=== PATIENT | male | born 1985 | race Caucasian/White ===

== ENCOUNTER 2016-06-23 08:56 | Emergency (ER) | payer OTHER ==
[2016-06-23] MEDS ORDERED: CLINDAMYCIN 150 MG CAPSULE PO STA (09:39)
[2016-06-23] MEDS ORDERED: DEXAMETHASONE 10 MG/ML VIAL PO STA (09:39)
[2016-06-23] MEDS ORDERED: ACETAMINOPHEN 325 MG TABLET PO STA (09:39)
[2016-06-23] MEDS ORDERED: CHERRY SYRUP 10 ML UDC PO ONE (09:43)
[2016-06-23] MEDS ORDERED: CLINDAMYCIN 150 MG CAPSULE PO ONE (09:43)
[2016-06-23] MEDS ORDERED: ACETAMINOPHEN 325 MG TABLET PO ONE (09:43)
[2016-06-23] MEDS ORDERED: DEXAMETHASONE 10 MG/ML VIAL ONE (09:44)
== END 2016-06-23 09:56 | disposition home or self-care (01) ==
DX: J36 Peritonsillar abscess (principal)
CPT/HCPCS: 87070; 87430; 99283; A9270

== ENCOUNTER 2016-06-24 19:42 | Emergency (ER) | payer OTHER ==
[2016-06-24] MEDS ORDERED: cefTRIAXone 500 MG VIAL IM STA (21:25)
[2016-06-24] MEDS ORDERED: ACETAMINOPHEN 325 MG TABLET PO STA (21:26)
[2016-06-24] MEDS ORDERED: DEXAMETHASONE 10 MG/ML VIAL PO STA (21:26)
[2016-06-24] MEDS ORDERED: LIDOCAINE-MPF 1% 5 ML VIAL ONE (21:30)
[2016-06-24] MEDS ORDERED: DEXAMETHASONE 10 MG/ML VIAL ONE (21:30)
[2016-06-24] MEDS ORDERED: cefTRIAXone 500 MG VIAL ONE (21:30)
[2016-06-24] MEDS ORDERED: ACETAMINOPHEN 325 MG TABLET PO ONE (21:32)
[2016-06-24] MEDS ORDERED: CHERRY SYRUP 10 ML UDC PO ONE (21:32)
== END 2016-06-24 21:51 | disposition home or self-care (01) ==
DX: J36 Peritonsillar abscess (principal)
CPT/HCPCS: 96372; 99282; 99283; A9270

== ENCOUNTER 2016-08-04 09:11 | Day surgery (SDC) | payer OTHER ==
[2016-08-04] MEDS ORDERED: ceFAZolin 2 GM/50 ML 50 ML IV ONE (09:37)
[2016-08-04] MEDS ORDERED: LACTATED RINGERS 1,000 ML IV ONE ×2 (09:41→12:01)
[2016-08-04] MEDS ORDERED: DEXAMETHASONE 4 MG/ML VIAL IVP ONE (11:50)
[2016-08-04] MEDS ORDERED: SODIUM CHLORIDE 0.9% 10 ML VIAL IV ONE (11:50)
[2016-08-04] MEDS ORDERED: PROPOFOL 200 MG/20 ML VIAL IVP ONE (11:50)
[2016-08-04] MEDS ORDERED: fentaNYL 100 MCG/2 ML VIAL IVP ONE (11:50)
[2016-08-04] MEDS ORDERED: MIDAZOLAM 2 MG/2 ML VIAL IVP ONE (11:50)
[2016-08-04] MEDS ORDERED: ONDANSETRON 4 MG/2 ML VIAL IVP ONE (11:50)
[2016-08-04] MEDS ORDERED: GLYCOPYRROLATE 1 MG/5 ML VIAL IVP ONE (11:50)
[2016-08-04] MEDS ORDERED: KETOROLAC 30 MG/ML VIAL IVP ONE (11:50)
[2016-08-04] MEDS ORDERED: LIDOCAINE-MPF 2% 5 ML VIAL IM ONE (11:50)
[2016-08-04] MEDS ORDERED: EPINEPHrine 1 MG/ML AMP IVP ONE (11:52)
[2016-08-04] MEDS ORDERED: BUPIVACAINE 0.5%-EPI 1:200000 PF 30 ML VIAL SUBQ ONE ×2 (12:01)
[2016-08-04] MEDS ORDERED: ACETAMINOPHEN 1,000 MG/100 ML 100 ML IV ONE (12:43)
== END 2016-08-04 09:12 | disposition home or self-care (01) ==
PROC: 0SBC4ZZ Excision of Right Knee Joint, Percutaneous Endoscopic Approach (ICD-10-PCS; principal; 2016-08-04 10:45)
DX: S83.221A Peripheral tear of medial meniscus, current injury, right knee, initial encounter (principal); V97.22XA Parachutist injured on landing, initial encounter
CPT/HCPCS: 29881; J0131; J0690; J7120

== ENCOUNTER 2016-08-10 09:24 | Emergency (ER) | payer OTHER ==
[2016-08-10] MEDS ORDERED: LIDOCAINE MPF 1%-EPI 1:200000 30 ML VIAL ONE (09:50)
[2016-08-10] MEDS ORDERED: LIDOCAINE 1% 2 ML VIAL ONE ×3 (09:51→11:13)
== END 2016-08-10 13:20 | disposition home or self-care (01) ==
DX: S64.40XA Injury of digital nerve of unspecified finger, initial encounter (principal); S61.411A Laceration without foreign body of right hand, initial encounter; W25.XXXA Contact with sharp glass, initial encounter; Y93.89 Activity, other specified; Y92.009 Unspecified place in unspecified non-institutional (private) residence as the place of occurrence of the external cause; Y99.8 Other external cause status